=== PATIENT | female | born 1995 | race Caucasian/White ===

== ENCOUNTER → 2021-08-19 | Outpatient (REF) | payer OTHER | LOC: M WUC 20:46 | PROVIDERS: ATTEND Nurse Practitioner Family | DX: R30.0 Dysuria (principal) ==

== ENCOUNTER 2023-10-26 10:49 | Emergency (ER) | payer OTHER ==
[~2023-10-26] VITALS: Ht 157.5 cm; Wt 63.6 kg
[2023-10-26 10:50] VITALS: BP 116/79; TEMP 97.5; O2SAT 97
[2023-10-26] MEDS ORDERED: HYDR-643 (11:04)
[2023-10-26] MEDS ORDERED: LIDO1PAD (11:04)
[2023-10-26] MEDS ORDERED: METH4PACK (11:04)
[2023-10-26] MEDS ORDERED: SERT50TA29 (11:04)
== END 2023-10-26 14:53 | disposition left against medical advice (07) ==
LOC: M ED 10:49
DX: Z53.21 Procedure and treatment not carried out due to patient leaving prior to being seen by health care provider (principal)

== ENCOUNTER 2023-11-28 23:16 | Emergency (ER) | payer OTHER ==
[~2023-11-28 23:16] MED LIST: HYDR-643; LIDO1PAD; METH4PACK; SERT50TA29
[2023-11-28 23:17] VITALS: BP 113/74; TEMP 98.6; O2SAT 95
== END 2023-11-29 01:36 | disposition left against medical advice (07) ==
LOC: M ED 23:16
DX: Z53.21 Procedure and treatment not carried out due to patient leaving prior to being seen by health care provider (principal)